=== PATIENT | female | born 1940 | race Caucasian/White ===

== ENCOUNTER 2018-12-18 01:35 | Emergency (ER) | payer OTHER, BC ==
[~2018-12-18] VITALS: Ht 152.4 cm; Wt 78.0 kg
[2018-12-18 01:35] VITALS: BP_SYST 155
[2018-12-18] MEDS ORDERED: fentaNYL CITRATE/PF 100 MCG/2 ML AMP IM ONE (02:00)
[2018-12-18 02:45] VITALS: BP_SYST 140
== END 2018-12-18 02:45 | disposition home or self-care (01) ==
LOC: SED 01:35
DX: S42.291A Other displaced fracture of upper end of right humerus, initial encounter for closed fracture (principal); K21.9 Gastro-esophageal reflux disease without esophagitis; Z85.3 Personal history of malignant neoplasm of breast; Z85.42 Personal history of malignant neoplasm of other parts of uterus; Z88.5 Allergy status to narcotic agent; Z88.6 Allergy status to analgesic agent; W01.0XXA Fall on same level from slipping, tripping and stumbling without subsequent striking against object, initial encounter; Y93.89 Activity, other specified; Y92.89 Other specified places as the place of occurrence of the external cause; Y99.8 Other external cause status
CPT/HCPCS: 29105; 73060; 82962; 96372; 99283; J3010